=== PATIENT | male | born 1990 | race Two or more races ===

== ENCOUNTER 2024-03-12 16:41 | Emergency (ER) | payer OTHER ==
[~2024-03-12] VITALS: Ht 177.8 cm; Wt 94.5 kg
[2024-03-12 16:56] VITALS: TEMP 97.8
[2024-03-12] MEDS: meclizine 12.5mg tablet PO ONE (17:55)
[2024-03-12] MEDS ORDERED: MECL-302 PO (18:58)
[2024-03-12 19:10] VITALS: BP 115/74; PULSE 81; RESP 14; O2SAT 98
== END 2024-03-12 19:12 | disposition home or self-care (01) ==
LOC: ER 16:42
DX: R42 Dizziness and giddiness (principal); H69.81 Other specified disorders of Eustachian tube, right ear; Z88.8 Allergy status to other drugs, medicaments and biological substances
CPT/HCPCS: 99283; J8597